=== PATIENT | female | born 1985 | race Two or more races ===

== ENCOUNTER 2024-11-25 08:10 | Outpatient (REF) | payer OTHER, SELFPAY | END 2024-11-25 08:11 | disposition home or self-care (01) | LOC: HO.LAB 08:10 | PROVIDERS: Visit Provider Nurse Practitioner Family | DX: R31.29 Other microscopic hematuria (principal); N39.46 Mixed incontinence; Z13.9 Encounter for screening, unspecified | CPT/HCPCS: 51798; 81003; 88112 ==

== ENCOUNTER 2024-11-25 08:10 | Outpatient (AMB) | payer OTHER, SELFPAY ==
--- NOTE | 2024-11-25 08:11 | A.OFFVIS_ITS ---
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 Cruz. She presents to the office today as a new patient for mixed urinary incontinence. She reports symptoms have been present for many years however feels they are worsening. She reports having previously followed up with a urologist in the past at which time recommendations were made for potential surgical procedure however she did not feel her symptoms were bothersome enough to have a surgical procedure. She reports most recently she has been experiencing significant episodes of stress incontinence and finds this extremely bothersome. She discusses having followed up with her PCP in discussing this issue at which time she was started on 25 mg of Myrbetriq. She reports and follow-up she noted no improvement at which time her PCP increased her Myrbetriq to 50 mg daily. She reports noting no improvement with increase in her Myrbetriq. She reports utilizing 3-4 Caroline pads per day along with adult d iapers. She does have a previous history of 2 vaginal deliveries of larger size babies. She reports after her 2nd child is when she felt symptoms began. She currently denies any UTI like symptoms. She denies hematuria, dysuria, foul smelling urine, changes to urinary stream, flank pain, fever, and or chills. We did discussed at length potential causes of mixed urinary incontinence as well as further treatment options and risks and benefits of these treatment options. In office urinalysis results reviewed with the patient today. Microscopic hematuria noted. She denies any previous history of workplace chemical exposure and or smoking history. PVR 87 mL. Discussed obtaining retroperitoneal ultrasound for further assessment evaluation. All questions were answered. She otherwise offers no other issues or concerns at this time. Discussion Notes I discussed with the patient that her symptoms are consistent with urge incontinence, which involves a sudden urge to urinate followed by involuntary leakage. We reviewed the treatment options, including physical therapy, alternative medications, and or urodynamics for further assessment and evaluation. We also discussed the potential risks of the urodynamic study and the need to stop Myrbetriq prior to the test. Plan The patient will undergo a urodynamic study to assess her urinary incontinence. Following the study, we will review the results to determine possible further interventions. Alternative medications may be explored if the current treatment remains ineffective. Imaging studies of the kidneys and bladder have been ordered to exclude other potential causes of her symptoms. FORMERLY [facility], [facility] Medical History Urge incontinence Review of Systems Const All systems reviewed & are unremarkable except as noted in HPI and below Physical Exam Const General: cooperative, healthy appearing, comfortable, no acute distress, well developed, alert and awake Orientation/consciousness: patient oriented x3 Limitations: no limitations HEENT Head: Yes normal to inspection, Yes normocephalic and Yes atraumatic Ears: hearing grossly normal bilaterally Eyes General: appearance normal, both eyes and all related structures Neck Neck: Yes normal visual inspection and Yes trachea midline Chest Chest palpation & inspection: normal inspection of the chest Resp Effort & Inspection: normal respiratory effort and able to speak in complete sentences Cardio Rate: regular rate GI Inspection: Yes normal to inspection General: Yes no CVA tenderness Back/Spine/Pelvis Back: no CVA tenderness Skin General skin exam: no rashes or lesions noted Neuro General: patient oriented x3 Extrem General: Yes normal to inspection Psych Appearance: grossly normal and well kempt Mental Status: mental status grossly normal Speech and movement: Normal speech and movement present and Clear speech present Affect: normal affect Attitude: cooperative Thought process: Normal thought process present Thought content: Normal thought content present Insight: Fair insight present (Psych) Judgement: Fair judgement present (Psych) Office Procedures Post Void Residual Post Residual Void Post Void Residual (PVR): 87 [id number] Void Residual by ultrasound Results AMB Urinalysis, Automated UA Leukoctes 0 Randy/uL Last Edit by Alexander Sudhasally, [facility] on 11/25/24 08:28 UA Nitrite Last Edit by Alexander Haley, [facility] on 11/25/24 08:28 UA Urobilinogen 0.2 mg/dL Last Edit by Alexander Haley, [facility] on 11/25/24 08:2 8 UA Protein 0 mg/dL Last Edit by Alexander Haley, [facility] on 11/25/24 08:28 UA pH 7.0 Last Edit by Alexander Haley, [facility] on 11/25/24 08:28 UA Blood 25 Calvin/uL [facility] on 11/25/24 08:28 UA Specific [place] 1.015 Last Edit by Alexander Haley, [facility] on 11/25/24 08: 28 UA Ketone Last Edit by Alexander Haley, [facility] on 11/25/24 08:28 UA Bilirubin 0 mg/dL Last Edit by Alexander Haley, [facility] on 11/25/24 08:28 UA Glucose 0 mg/dL Last Edit by Alexander Haley, [facility] on 11/25/24 08:28 Results Reviewed Results Reviewed: Laboratory Last Values Urine pH (Auto) 7.0 11/25/24 08:16 Specific [place] (Auto) 1.015 11/25/24 08:16 Urine Protein (Auto) 0 mg/dL 11/25/24 08:16 Glucose (UA)(Auto) 0 mg/dL 11/25/24 08:16 Urine Blood (Auto) 25 Calvin/uL 11/25/24 08:16 Urine Bilirubin (Auto) 0 mg/dL 11/25/24 08:16 Urine Urobilinogen (Auto) 0.2 mg/dL 11/25/24 08:16 Leukocyte Esterase (Auto) 0 Randy/uL 11/25/24 08:16 Assessment & Plan Assessment & Plan (1) Mixed stress and urge urinary incontinence: Code(s): N39.46 - Mixed incontinence Category: Medical (2) Microscopic hematuria: Code(s): R31.29 - Other microscopic hematuria Category: Medical Plan In office urinalysis results with the patient today; as noted above; will send for urine cytology PVR 87mL. Will obtain retroperitoneal ultrasound for further assessment evaluation. We did discussed at length potential causes and treatment options of mixed urinary incontinence; risks and benefits were discussed. All questions were answered. Stop Myrbetriq. Follow-up next available in office urodynamics. Follow-up per doctor's orders; or sooner with any issues, concerns, and or questions. Orders: Orders AMB Urinalysis Automated Today Z13.9 - Encounter for screening, unspecified AMB Post Void Residual by ultrasound Today Z13.9 - Encounter for screening, unspecified US retroperitoneal comp Today N39.46 - Mixed incontinence Urine Cytology Today R31.29 - Other microscopic hematuria Patient Instructions: The patient had an opportunity to ask questions regarding the treatment plan. All questions were answered. Physical exam, labs, and imaging were discussed and reviewed in detail. As well as risks, benefits, and discussion of treatment choices. No major barriers to understanding were identified. The patient expressed understanding and agreement with the above treatment plan. The patient was made aware they should contact our office by phone for worsening of their current condition, the appearance of new symptoms, or with any questions or concerns. Compliance is encouraged with any medications and follow up testing that is ordered. It is a privilege to be allowed the opportunity to participate in? your urological care.? Again, if you have any questions or concerns If you have any questions or concerns please do not hesitate to contact me. The office is [phone]. This note is constructed using voice recognition software. While every effort has been made to ensure accuracy topline beading machine tender errors may have been included. Yours sincerely, ALAN Landis Coding Level of Care Code New Pt Level 3 (16698) Diagnoses Mixed stress and urge urinary incontinence N39.46 Microscopic hematuria R31.29 CPT Codes Post Residual Void - PVR CPT Code: 82787-[id number] Void Residual by ultrasound ([id number])
--- OUTSIDE RECORDS SUMMARY | 2024-11-25 08:16 | XMS_ITS | Clinical Summary ---
Author Organization [facility] ity Address [address] [place] [address] Care Team Providers Care Automatic Thread Winder Name Role Phone Unavailable Primary Care Provider Unavailabl e Social History Tobacco Use Types Packs/Day Years Used Date Smoking Tobacco: Never Assessed Sex and Gender Information Value Date Recorded Sex Assigned at Not on file Legal Sex Male 10:42 PM EST Gender Identity Not on file Sexual Orientation Not on file Plan of Treatment Health Maintenance Due Date Last Done Comments DTaP,Tdap,and Td Vaccines (1 - Tdap) 2004 Hepatitis B Vaccines (1 of 3 - 19+ 3-dose series) 2004 COVID-19 Vaccine ( - 2023-2 5 season) 2024 Influenza Vaccine (#1) 2025 HIB Vaccines Aged Out No longer eligi ble based on patient's age to complete this topic HPV Vaccines Aged Out No longer eligi ble based on patient's age to complete this topic Hepatitis A Vaccines Aged Out No long er eligible based on patient's age to complete this topic IPV Vaccines Aged Out No longer eligi ble based on patient's age to complete this topic MMR Vaccines Aged Out No longer eligi ble based on patient's age to complete this topic Meningococcal ACWY Vaccine Aged Out N o longer eligible based on patient's age to complete this topic Meningococcal B Vaccine Aged Out No l onger eligible based on patient's age to complete this topic Pneumococcal Vaccine: Pediat rics (0 to 5 Years) and At-Risk Patients (6 to 64 Years) Aged Out No longer eligible b ased on patient's age to complete this topic RSV Immunization Patients Un xavier 20 months Aged Out No longer eligible b ased on patient's age to complete this topic Varicella Vaccines Aged Out No longer eligible based on patient's age to complete this topic
--- OUTSIDE RECORDS SUMMARY | 2024-11-25 08:16 | XMS_ITS | Clinical Summary ---
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 20 mmHG. Dx: M79.89 3 Each 08/15/19 19 Active mirabegron 50 mg [id number]: Mixed stress and urge urinary incontinence Take 1 Tablet by mouth nightly at bedtime. 90 Tablet 11/05/19 25 Active escitalopram (LEXAPRO) 10 mg tabletIndication s:Adjustment disorder with depressed mood Take 1 Tablet by mouth once daily. 90 Tablet 1 11/05/19 25 Active mirabegron ER (MYRBETRIQ) 25 mg [id number]: Urge incontinence of urine Take 1 Tablet by mouth nightly at bedtime 90 Tablet 1 09/07/19 25 025 Discontin ued(Ineff ective therapy) Active Problems Problem Noted Date Diagnosed Date Vitamin D deficiency 06/19/2018 Constipation 06/19/2018 Encounters Date Type Department Care Team Description 11/04/2024 3:00 PM EDT Office Visit [address] [phone] Sara Cortez MD 10/31/2024 10:00 AM EDT Office Visit [id number] [place] [phone] Diego Pinedo DMD 09/09/2024 Results Follow-Up [address] [phone] Rodrigo Cruz NP 09/06/2024 1:40 PM EDT Office Visit [address] [phone] Rodrigo Cruz NP from Last 3 Months Immunizations Immunization Administration Dates Next Due INFLUENZA, SEASONAL, INJECTABLE 02/28/2018 Family History Medical History Relation Name Comments Hypertension Mother Relation Name Status Comments Mother Alive Social History Tobacco Use Types Packs/Day Years Used Date Smoking Tobacco: Never Smokeless Tobacco: Never Tobacco Cessation:Counseling Given: Not Answered Alcohol Use Standard Drinks/Week Comments No 0 (1 standard drink = 0.6 oz pur e alcohol) Social Connections Answer Date Recorded Connectedness 0 02/02/2024 Financial Resource Strain Answer Date R ecorded Financial Resource Strain 0 2018 Stress Answer Date Recorded Stress 0 01/14/2019 Physical Activity Answer Date Recorded Physical Activity 0 01/14/2019 Food Insecurity Answer Date Recorded Food 0 02/15/2024 Transportation Needs Answer Date Record ed Transportation 0 01/14/2019 Housing Stability Answer Date Recorded Housing 0 01/14/2019 Safety and Environment Answer Date Eber rded Safety 0 01/14/2019 Utilities Answer Date Recorded Utilities 0 01/14/2019 Employment Answer Date Recorded Stress 0 02/02/2024 Comments No Sex and Gender Information Value Date Recorded Sex Assigned at Female 06/19/2018 8:11 AM PST Legal Sex Female 6:19 AM PST Gender Identity Female 06/19/2018 8:11 AM PST Sexual Orientation Straight 06/19/2018 8: 11 AM PST 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 Not on file Not on file Last Filed Vital Signs Vital Sign Reading Time Taken Comments Blood Pressure 126/68 11/04/2024 2:37 PM EDT Pulse 71 10/31/2024 1:13 PM EDT Temperature 36 C (96.8 F) 11/04/2024 2:37 PM EDT Respiratory Rate 18 11/04/2024 2:37 PM EDT Oxygen Saturation 97% 09/06/2024 1:55 PM EDT Inhaled Oxygen Concentration - - Weight 105.3 kg (232 lb 3.2 oz) 11/04/2024 2:37 PM EDT Height 170.2 cm (5' 7 ) 09/06/2024 1:55 PM EDT Body Mass Index 36.37 09/06/2024 1:55 PM EDT Plan of Treatment Upcoming Encounters Date Type Department Care Team (Late st Contact Info) Description 01/02/2025 9:40 AM EDT Office Visit [facility] [address] [place] [phone] Diego Crandall DDS [address] [place] [address] 02/03/2025 9:00 AM EDT Office Visit [facility] [address] [place] [phone] Lani Irby [address] [place] [address] Health Maintenance Due Date Last Done Comments Anxiety Screening 1985 Dental FMX/Pano 1985 HPV Screening 1985 Pap + HPV 1985 Relationship Safety Screening/Counseling 2000 Imm-Hepatitis B (1 of 3 - 19 + 3-dose series) 2004 Annual Wellness (Adult): Indicated (All Coverage) 06/19/2019 06/19/2018 Cervical Cancer Screening 03/02/2021 Pap Smear 03/02/2021 03/02/2018 [id number]-10 ( season) 2024 Dental BW 12/19/2024 12/18/2023, 0 01/2024, 11/29/2022, Additional history exists Dental Examination 12/19/2024 12/18/2023, 0 05/30/2023, 11/29/2022, Additional history exists Dental Perio Charting 12/19/2024 12/18/2023, 023 Dental Prophy 12/19/2024 12/18/2023, 01/2024, 11/29/2022, Additional history exists Imm-Influenza (#1) 2025 02/28/2018 Diabetes Screening 09/06/2025 09/06/2024, 0 09/06/2024, 11/27/2019, Additional history exists Hypertension Screening (#1) 11/04/2025 Tobacco Screening 11/04/2025 11/04/2024 Lipid Screening 09/07/2027 09/06/2024, 06/28/2018 Imm-DTaP/Tdap/Td (2 - Td or Tdap) 09/08/2031 022 HIV Screening Completed 03/08/2021, 01/16/2019 Hepatitis C Screening Completed 09/06/2024 Alcohol and Drug Screen Completed 11/04/2024, 06/19 Depression Annual Screen Completed 11/04/2024, 05/23 Cervical Ablation/Cold-Knife Conization Discontinued Cervical Cryotherapy Discontinued Colposcopy Discontinued Endometrial Biopsy Discontinued Excision/Leep Discontinued HPV Genotyping Discontinued Vaginal Pap Discontinued Vulvoscopy Discontinued Procedures Procedure Name Priority Date/Time Associated Diagnosis Comments 32 INTRAORAL - PERIAPICAL FIRST RADIOGRAPHIC IMAGE TOOTH REQUIRED Routine 10/31/2024 10:00 AM EDT Defective dental shinto 32 LIMITED ORAL EVALUATION - PROBLEM FOCUSED Routine 10/31/2024 10:00 AM EDT Defective dental shinto Dental caries on smooth surface penetrating into pulp HEPATITIS C AB W/RFLX HCV RNA, QT, RT PCR Routine 09/06/2024 2:21 PM EDT Need for hepatitis C screening test TSH W/RFLX FREE T4 Routine 09/06/2024 2: 21 PM EDT Obesity (BMI 30-39.9) COMPREHENSIVE METABOLIC PANEL Routine 09/06/2024 2:21 PM EDT Screening for heart disease BLOOD COUNT COMPLETE AUTO&AUTO DIFRNTL WBC Routine 09/06/2024 2:21 PM EDT Screening for heart disease LIPID PANEL Routine 09/06/2024 2:21 PM EDT Obesity (BMI 30-39.9) HEMOGLOBIN GLYCOSYLATED A1C Routine 09/06/2024 2:21 PM EDT Obesity (BMI 30-39.9) COMP PERIODONTAL EVALUATION - NEW/EST PATIENT Routine 12/18/2023 9:00 AM EDT Caries BITEWINGS - FOUR RADIOGRAPHIC IMAGES Routine 12/18/2023 9:00 AM EDT Caries PROPHYLAXIS - ADULT Routine 12/18/2023 9 :00 AM EDT [facility] PERIODIC ORAL EVALUATION ESTABLISHED PATIENT Routine 12/18/2023 9:00 AM EDT [facility] HIV 1/2 AG & AB W/RFLX (4TH GEN) Routine 03/08/2021 12:50 PM EDT Routine screening for STI (sexually transmitted infection) PAP SMEAR Routine 03/02/2018 8:44 AM EDT from Last 3 Months or Most Recently Relevant to Health Maintenance Results * HEPATITIS C AB W/RFLX HCV RNA, QT, RT PCR (09/06/2024 2:21 PM EDT) HEPATITIS C ANTIBODY NON-REACT MYRIAM NON-REACT MYRIAM [facility] Comment: HCV antibody was non-reactive. There is no laboratory evidence of HCV infection. In most cases, no further action is required. However, if recent HCV exposure is suspected, a test for HCV RNA (test code 15980) is suggested. For additional information please refer to http://education.LiveData/faq/GPC97z4 (This link is being provided for informational/ educational purposes only.) Blood Blood / Unknown 09/06/2024 2 :21 PM EDT 09/06/2024 2:22 PM EDT Narrative [facility] - 09/07/2024 2:07 PM EDT FASTING:NO Rodrigo Cruz NP LAB - BLOOD DRAW Edited Result - Final [facility] [address] [place] [address], [facility] [address] [address] * TSH W/RFLX FREE T4 (09/06/2024 2:21 PM EDT) TSH W/REFLEX TO FT4 2.16 0.40 - 4.50 mIU/L [facility] Comment: Reference Range > or = 20 Years 0.40-4.50 Ranges First trimester 0.26-2.66 Second trimester 0.55-2.73 Third trimester 0.43-2.91 Blood Blood / Unknown 09/06/2024 2 :21 PM EDT 09/06/2024 2:22 PM EDT Narrative [facility] - 09/07/2024 2:07 PM EDT FASTING:NO Rodrigo Cruz NP LAB - BLOOD DRAW Edited Result - Final [facility] [address] [place] [address], [facility] [address] [address] * BLOOD COUNT COMPLETE AUTO&AUTO DIFRNTL WBC (09/06/2024 2:21 PM EDT) Pathologist [facility] WHITE BLOOD CELL COUNT 6.0 3.8 - 10.8 Thousand/ uL [facility] RED BLOOD CELL COUNT 4.79 3.80 - 5.10 Million/u L [facility] HEMOGLOBIN 14.5 11.7 - 15.5 g/dL [facility] HEMATOCRIT 44.0 35.0 - 45.0 % [facility] MCV 91.9 80.0 - 100.0 fL [facility] MCH 30.3 27.0 - 33.0 pg [facility] MCHC 33.0 32.0 - 36.0 g/dL [facility] Comment: For adults, a slight decrease in the calculated MCHC value (in the range of 30 to 32 g/dL) is most likely not clinically significant; however, it should be interpreted with caution in correlation with other red cell parameters and the patient's clinical condition. RDW 12.3 11.0 - 15.0 % [facility] PLATELET COUNT 291 140 - 400 Thousand/ uL [employer] MPV 11.8 7.5 - 12.5 fL [facility] ABSOLUTE NEUTROPHILS 3,912 1,500 - 7,800 cells/uL [facility] ABSOLUTE LYMPHOCYTES 1,614 850 - 3,900 cells/uL [facility] ABSOLUTE MONOCYTES 414 200 - 950 cells/uL [facility] ABSOLUTE EOSINOPHILS 48 15 - 500 cells/uL [facility] ABSOLUTE BASOPHILS 12 0 - 200 cells/uL [facility] NEUTROPHILS PCT 65.2 % [facility] LYMPHOCYTES 26.9 % [facility] MONOCYTES 6.9 % [facility] [email or web address] [facility] EOSINOPHILS 0.8 % [facility] BASOPHILS 0.2 % [facility] Blood Blood / Unknown 09/06/2024 2 :21 PM EDT 09/06/2024 2:22 PM EDT Narrative [facility] - 09/07/2024 2:07 PM EDT FASTING:NO us Rodrigo Cruz NP LAB - BLOOD DRAW Edited Result - Final [facility] [address] [address], [facility] [address] [address] * (ABNORMAL) HEMOGLOBIN GLYCOSYLATED A1C (09/06/2024 2:21 PM EDT) HEMOGLOBIN A1C 5.7(H) <5.7 % [facility] Comment: For someone without known diabetes, a hemoglobin A1c value between 5.7% and 6.4% is consistent with prediabetes and should be confirmed with a follow-up test. For someone with known diabetes, a value <7% indicates that their diabetes is well controlled. A1c targets should be individualized based on duration of diabetes, age, comorbid conditions, and other considerations. This assay result is consistent with an increased risk of diabetes. Currently, no consensus exists regarding use of hemoglobin A1c for diagnosis of diabetes for children. Blood Blood / Unknown 09/06/2024 2 :21 PM EDT 09/06/2024 2:22 PM EDT [facility] - 09/07/2024 2:07 PM EDT FASTING:NO us Rodrigo Cruz APARTMENT LEASING SPECIALIST LAB - BLOOD DRAW Edited Result - Final Performing Organization Address [facility]/ZIP Co de Phone Number [facility] [address] [address], [facility] [address] [place] [address] * (ABNORMAL) LIPID PANEL (09/06/2024 2:21 PM EDT) [facility] Signature CHOLESTEROL, TOTAL 176 <200 mg/dL [facility] HDL CHOLESTEROL 44(L) > OR = 50 mg/dL [facility] TRIGLYCERIDES 179(H) <150 mg/dL [facility] LDL-CHOLESTEROL 102(H) 99 mg/dL (calc) [facility] Comment: Reference range: <100 Desirable range <100 mg/dL for primary prevention; <70 mg/dL for patients with CHD or diabetic patients with > or = 2 CHD risk factors. LDL-C is now calculated using the Jakob calculation, which is a validated novel method providing better accuracy than the Friedewald equation in the estimation of LDL-C. Todd ARMSTRONG et al. CORRIE. 2013;310(19): 3883-8205 (http://education.FitBark/faq/PFC893) CHOL/HDLC RATIO 4.0 <5.0 (calc) [facility] NON-HDL CHOLESTEROL 132(H) <130 mg/dL (calc) [facility] Comment: For patients with diabetes plus 1 major ASCVD risk factor, treating to a non-HDL-C goal of <100 mg/dL (LDL-C of <70 mg/dL) is considered a therapeutic option. Blood Blood / Unknown 09/06/2024 2 :21 PM EDT 09/06/2024 2:22 PM EDT Narrative [facility] - 09/07/2024 2:07 PM EDT FASTING:NO Rodrigo Cruz APARTMENT LEASING SPECIALIST LAB - BLOOD DRAW Final Result Performing Organization Address City/[facility] Hospital/ZIP Co de Phone Number [facility] [address] [address], [facility] [address] [place] [address] * (ABNORMAL) COMPREHENSIVE METABOLIC PANEL (09/06/2024 2:21 PM EDT) Pathologist [facility] GLUCOSE 90 65 - 139 mg/dL [facility] Comment: Non-fasting reference interval UREA NITROGEN (BUN) 12 7 - 25 mg/dL [facility] CREATININE (blood) 1.10(H) 0.50 - 0.97 mg/dL [facility] EGFR 66 > OR = 60 mL/min/1. 73m2 [facility] BUN/CREATININE RATIO 11 6 - 22 (calc) [facility] SODIUM 138 135 - 146 mmol/L [facility] POTASSIUM 4.6 3.5 - 5.3 mmol/L [facility] CHLORIDE 106 98 - 110 mmol/L [facility] CARBON DIOXIDE 26 20 - 32 mmol/L [facility] CALCIUM 9.7 8.6 - 10.2 mg/dL [facility] PROTEIN, TOTAL 7.7 6.1 - 8.1 g/dL [facility] ALBUMIN 4.4 3.6 - 5.1 g/dL [facility] GLOBULIN 3.3 1.9 - 3.7 g/dL (calc) [facility] ALBUMIN/GLOBULI N RATIO 1.3 1.0 - 2.5 (calc) [facility] BILIRUBIN, TOTAL 0.4 0.2 - 1.2 mg/dL [facility] ALKALINE PHOSPHATASE 61 31 - 125 U/L [facility] AST 14 10 - 30 U/L [facility] ALT 17 6 - 29 U/L [facility] Blood Blood / Unknown 09/06/2024 2 :21 PM EDT 09/06/2024 2:22 PM EDT Narrative [facility] - 09/07/2024 2:07 PM EDT FASTING:NO Rodrigo Cruz APARTMENT LEASING SPECIALIST LAB - BLOOD DRAW Final Result [facility] [address] [address], [facility] [address] [address] * HIV 1/2 AG & AB W/RFLX (4TH GEN) (03/08/2021 12:50 PM EDT) Pathologist [facility] HIV AG/AB, 4TH GEN NON-REAC TIVE NON-REAC TIVE [facility] Comment: HIV-1 antigen and HIV-1/HIV-2 antibodies were not detected. There is no laboratory evidence of HIV infection. PLEASE NOTE: This information has been disclosed to you from records whose confidentiality may be protected by state law. If your state requires such protection, then the state law prohibits you from making any further disclosure of the information without the specific written consent of the person to whom it pertains, or as otherwise permitted by law. A general authorization for the release of medical or other information is NOT sufficient for this purpose. For additional information please refer to http://education.LiveData/faq/UAR141 (This link is being provided for informational/ educational purposes only.) The performance of this assay has not been clinically validated in patients less than 2 years old. Blood Blood / Unknown 03/08/2021 1 2:50 PM EDT 03/08/2021 12:50 PM EDT Megha Herron ALL PURPOSE CLERK LAB - BLOOD DRAW Final Result [facility] [address] [address], [facility] [address] [address] * PAP SMEAR, ABSTRACTED (03/02/2018 8:44 AM EDT) PAP SMEAR INTERPRETATION NORMAL NORMAL [facility] Specimen from uterine cervix (specimen) Impressions [facility] - 03/02/2018 8:44 AM EDT ThinPrep Pap Negative for squamous intraepithelial lesion and malignancy Provider [facility] - PATHOLOGY AND CYTOLOGY AMB ULATORY Final Result [facility] [address] [id number], from Last 3 Months or Most Recently Relevant to Health Maintenance Insurance [place] Subtext [facility]
== END 2024-11-25 09:03 | disposition home or self-care (01) ==
LOC: HO.HUSH 08:11
PROVIDERS: Visit Provider Nurse Practitioner Family
DX: N39.46 Mixed incontinence (principal); R31.29 Other microscopic hematuria; Z13.9 Encounter for screening, unspecified
CPT/HCPCS: 99203

== ENCOUNTER 2024-12-11 09:56 | Outpatient (REF) | payer OTHER, SELFPAY ==
--- NOTE | ~2024-12-11 | US_ITS ---
EXAMINATION: US RETROPERITONEAL COMPLETE (RENAL) CLINICAL INFORMATION: Mixed incontinence.. COMPARISON: None available. TECHNIQUE: Real-time imaging of the kidneys and bladder. FINDINGS: RIGHT KIDNEY: 11 x 5 x 6 cm (SAG x AP x TRV). Volume: 181 cc. Normal echotexture. Normal renal cortical thickness. No hydronephrosis. No gross solid or cystic lesion. LEFT KIDNEY: 12 x 5 x 6 cm (SAG x AP x TRV). Volume: 195 cc. Normal echotexture. Normal renal cortical thickness. No hydronephrosis. No gross solid or cystic lesion detected. BLADDER: Fluid-filled Bilateral ureteral jets are demonstrated. Prevoid bladder volume is 123 mL. Postvoid bladder volume is 20 mL. US/US retroperitoneal comp IMPRESSION: No hydronephrosis. 20 cc retained urine in a post void image.. Electronically signed by: Jonathan Lovell MD 12/11/2024 10:40 AM EDT
--- OUTSIDE RECORDS SUMMARY | 2024-12-11 10:42 | XMS_ITS | Clinical Summary ---
Author Organization [facility] ity Address [address] [place] [address] Care Team Providers Care Dbas Name Role Phone Unavailable Primary Care Provider [...] Vaccine ( - 2023-2 5 season) 2024 Depression Screening 05/22/2024 Influenza Vaccine (#1) 2025 HIB Vaccines Aged [...] 5 Years) and At-Risk Patients (6 to 49 Years) Aged Out No longer eligible b ased on patient's age to complete this topic RSV Immunization Patients Un xavier 20 months Aged Out No longer eligible b ased on patient's age to complete this topic Varicella Vaccines Aged Out No longer eligible based on patient's age to complete this topic
== END 2024-12-11 09:57 | disposition home or self-care (01) ==
LOC: HO.US 09:56
PROVIDERS: Visit Provider Nurse Practitioner Family
DX: N39.46 Mixed incontinence (principal)
CPT/HCPCS: 76770

== ENCOUNTER → 2024-12-11 09:57 | Outpatient (BNV) | payer OTHER, SELFPAY | PROVIDERS: Visit Provider Radiology Diagnostic Radiology | DX: N39.46 Mixed incontinence (principal) | CPT/HCPCS: 76770 ==

== ENCOUNTER 2024-12-20 13:09 | Outpatient (AMB) | payer OTHER, SELFPAY ==
--- OUTSIDE RECORDS SUMMARY | 2024-12-20 13:11 | XMS_ITS | Clinical Summary ---
Author Organization [facility] Address [address] [place] [address] Care Team Providers Care Marine Mechanic Name Role Phone Unavailable Primary Care Provider [...] STOCKINGS. 20 mmHG. Dx: M79.89 3 Each 9 Active mirabegron 50 mg [id number]: Mixed stress and urge urinary incontinence Take 1 Tablet by mouth nightly at bedtime. 90 Tablet 5 Active escitalopram (LEXAPRO) 10 mg tabletIndication s:Adjustment disorder with depressed mood Take 1 Tablet by mouth once daily. 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 Not on file Not [...] Description 01/02/2025 9:40 AM EDT Office Visit [facility] [address] [place] [address] Marian Crandallis, DDS [address] [place] [address] 02/03/2025 9:00 AM EDT Office Visit [facility] [address] [place] [phone] Lani Irby [address] [place] [address] Health Maintenance Due Date Last Done Comments Anxiety Screening 1985 Dental FMX/Pano 1985 HPV Screening 1985 Pap + HPV 1985 Relationship Safety Screening/Counseling 2000 Imm-Hepatitis B (1 of 3 - 19 + 3-dose series) 2004 Annual Wellness (Adult): Indicated (All Coverage) 06/19/2019 06/19/2018 Cervical Cancer Screening 03/02/2021 Pap Smear 03/02/2021 03/02/2018 [id number] ( season) 2024 Dental BW 12/19/2024 12/18/2023, 01/0 01/2024, 11/29/2022, Additional history exists Dental Examination 12/19/2024 12/18/2023, 0 05/30/2023, 11/29/2022, Additional history exists Dental Perio Charting 12/19/2024 12/18/2023, 023 Dental Prophy 12/19/2024 12/18/2023, 01/0 01/2024, 11/29/2022, Additional history exists Imm-Influenza (#1) [...] Routine 10/31/2024 10:00 AM EDT Defective dental congregational 32 LIMITED ORAL EVALUATION - PROBLEM FOCUSED Routine 10/31/2024 10:00 AM EDT Defective dental congregational Dental caries on smooth surface penetrating into pulp HEPATITIS C AB W/RFLX HCV RNA, QT, RT PCR Routine 09/06/2024 2:21 PM EDT Need for hepatitis C screening test HEMOGLOBIN GLYCOSYLATED A1C Routine 09/06/2024 2:21 PM EDT Obesity (BMI 30-39.9) LIPID PANEL Routine 09/06/2024 2:21 PM EDT [...] HEPATITIS C ANTIBODY NON-REACT MYRIAM NON-REACT MYRIAM [facility] Comment: HCV antibody was non-reactive. There is no laboratory evidence of HCV infection. In most cases, no further action is required. However, if recent HCV exposure is suspected, a test for HCV RNA (test code 46580) is suggested. For additional information please refer to http://education.LeWa [employer]ek/faq/DRI35d8 (This link is being provided for informational/ educational purposes only.) Blood Blood / Unknown 09/06/2024 2 :21 PM EDT 09/06/2024 2:22 PM EDT Narrative [employer] [facility] - 09/07/2024 2:07 PM EDT FASTING:NO us Rodrigo Cruz NP LAB - BLOOD DRAW Edited Result - Final Performing Organization Address [facility] de Phone Number [employer] [address] [address], [facility] [address] [address] * (ABNORMAL) HEMOGLOBIN GLYCOSYLATED A1C (09/06/2024 2:21 PM EDT) HEMOGLOBIN A1C 5.7(H) <5.7 % [facility] Comment: For someone without known diabetes, a [...] PM EDT 09/06/2024 2:22 PM EDT Narrative [employer] [facility] - 09/07/2024 2:07 PM EDT FASTING:NO us Rodrigo Cruz DRUM DRIER OPERATOR LAB - BLOOD DRAW Edited Result - Final Performing Organization Address [facility] Co de Phone Number [facility] [address] [address], [facility] [address] [address] * (ABNORMAL) LIPID PANEL (09/06/2024 2:21 PM EDT) [facility] CHOLESTEROL, TOTAL 176 <200 mg/dL [facility] HDL CHOLESTEROL 44(L) > OR = 50 mg/dL [facility] TRIGLYCERIDES 179(H) <150 mg/dL [facility] LDL-CHOLESTEROL 102(H) 99 mg/dL (calc) [facility] Comment: Reference range: <100 Desirable range <100 mg/dL for primary prevention; <70 mg/dL for patients with CHD or diabetic patients with > or = 2 CHD risk factors. LDL-C is now calculated using the Jakob calculation, which is a validated novel method providing better accuracy than the Friedewald equation in the estimation of LDL-C. Todd ARMSTRONG et al. CORRIE. 2013;310(19): 7968-5454 (http://education.[employer]/faq/MQA415) CHOL/HDLC RATIO 4.0 <5.0 (calc) [facility] NON-HDL CHOLESTEROL 132(H) <130 mg/dL (calc) [facility] Comment: For patients with diabetes plus 1 major ASCVD risk factor, treating to a non-HDL-C goal of <100 mg/dL (LDL-C of <70 mg/dL) is considered a therapeutic option. Blood Blood / Unknown 09/06/2024 2 :21 PM EDT 09/06/2024 2:22 PM EDT Narrative [employer] [facility] - 09/07/2024 2:07 PM EDT FASTING:NO Rodrigo Cruz NP LAB - BLOOD DRAW Final Result [facility] [address] [address], [facility] [address] [address] * HIV 1/2 AG & AB W/RFLX (4TH GEN) (03/08/2021 12:50 PM EDT) [facility] HIV AG/AB, 4TH GEN NON-REAC TIVE NON-REAC TIVE [facility] Comment: HIV-1 antigen and HIV-1/HIV-2 antibodies [...] purpose. For additional information please refer to http://education.LeWa Tek/faq/KHZ948 (This link is being provided for informational/ educational purposes only.) The performance of this assay has not been clinically validated in patients less than 2 years old. Blood Blood / Unknown 03/08/2021 1 2:50 PM EDT 03/08/2021 12:50 PM EDT Megha Herron SR SOLUTIONS CONSULTANT LAB - BLOOD DRAW Final Result [facility] [address] [address], [facility] [address] [address] * PAP SMEAR, ABSTRACTED (03/02/2018 8:44 AM EDT) PAP SMEAR INTERPRETATION NORMAL NORMAL [facility] Specimen from uterine cervix (specimen) Impressions [facility] - 03/02/2018 8:44 AM EDT ThinPrep Pap Negative for squamous intraepithelial lesion and malignancy Provider [facility] - PATHOLOGY AND CYTOLOGY AMB ULATORY Final Result [facility] [address] [place] [address], from Last 3 Months or Most Recently Relevant to Health Maintenance Insurance [place] MEDICAID D[place] [employer] [facility]
--- OUTSIDE RECORDS SUMMARY | 2024-12-20 13:11 | XMS_ITS | Clinical Summary ---
Author Organization [facility] ity Address [address] [place] [address] Care Team Providers Care Electrotherapist Name Role Phone Unavailable Primary Care Provider [...]
--- NOTE | 2024-12-20 13:55 | A.OFFVIS_ITS ---
Intake Visit Reasons: UroD/US Allergies No Known Allergies Allergy (Verified 11/25/24 08:43) HPI Comments Details: 12/20/24--Mora is here for urodynamics. The patient has complaints of urinary incontinence, associated with urgency as well as leakage associated with coughing. Interpretation: During the filling phase there was sensory urgency and detrusor over activity. EMG- Appropriate changes in the waveforms were noted throughout study. Leakage [] was [] was not observed during cough or valsalva stress. Findings consistent with [] ISD [] less than average functional bladder capacity, [] detrusor overactivity. 11/25/24--Gemma is a very pleasant 39-year-old female patient of Dr. Cruz. She presents to the office today as a new patient for mixed urinary incontinence. She reports symptoms have been present for many years however feels they are worsening. She reports having previously followed up with a urologist in the past at which time recommendations were made for potential surgical procedure however she did not feel her symptoms were bothersome enough to have a surgical procedure. She reports most recently she has been experiencing significant episodes of stress incontinence and finds this extremely bothersome. She discusses having followed up with her PCP in discussing this issue at which time she was started on 25 mg of Myrbetriq. She reports and follow-up she noted no improvement at which time her PCP increased her Myrbetriq to 50 mg daily. She reports noting no improvement with increase in her Myrbetriq. She reports utilizing 3-4 Caroline pads per day along with adult diapers. She does have a previous history of 2 vaginal deliveries of larger size babies. She reports after her 2nd child is when she felt symptoms began. She currently denies any UTI like symptoms. She denies hematuria, dysuria, foul smelling urine, changes to urinary stream, flank pain, fever, and or chills. We did discussed at length potential causes of mixed urinary incontinence as well as further treatment options and risks and benefits of these treatment options. In office urinalysis results reviewed with the patient today. Microscopic hematuria noted. She denies any previous history of workplace chemical exposure and or smoking history. PVR 87 mL. Discussed obtaining retroperitoneal ultrasound for further assessment evaluation. All questions were answered. She otherwise offers no other issues or concerns at this time. [facility] Medical History (Reviewed 11/25/24 @ 08:44 by CAMDEN Land[facility]EN[facility] Urge incontinence Office Procedures Urodynamic Studies Consent Discussed risk and benefit or proposed procedure with the patient. Information consent for procedure given to the patient. Discussed technical aspects, risks, benefits and alternatives in full. Addressed all of the patient's questions and concerns regarding the procedure. The patient demonstrated knowledge and understanding. They wish to proceed with this procedure. Preparation The patient was prepped in the usual manner. A department head college or university was present and in the room. Genitalia was prepped with betadine solution in a sterile manner. Procedure Complex Uroflow Unable to perform, patient voided just prior to starting test and had no further urge. Cystometrogram ? Vaginal/rectal catheter type: Vaginal First sensation at (mL): 22mL First desire at (mL): 99 mL Strong desire to void occurred at (mL): 137 mL Strong desire detrusor pressure (cm H2O): 9.0 Maximum Capacity (mL): 160 mL Voiding Summary Voided with max detrusor pressure of (cm H2O): 44 Maximum flow rate (mL/second): 17 mL/s Voided volume (mL): 120ml (Moderate amount leaked onto ground and unable to measure full amount voided.) Calculated PVR: 0 Stress Testing Unable to perform due to severe DO. Urgency with no DO: 99ml DO Dry: 109ml, 137ml DO Wet:160ml Prep: The patient was prepped in the usual manner. A department head college or university was present and in the room. Genitalia was prepped with betadine solution in a sterile manner. 66302-Bquhwbsrvwqvxn w/ JOCKEY AGENT 88796-Vbweorh-Yuwuvaktdzlt 99939-Nndr/Urinary Muscle Study 59539-Rwsaz-Xhfljcaau Pressure Test Procedure code (CPT) selection complete Office Meds nitrofurantoin monohydrate/macrocrystals 100 mg capsule Performing Provider: Stefan Reed MD Per[facility] Administered by: Elicia Burger RN on 12/20/24 13:55 Dose Route Admin Location Dispensed Lot Number Expiration Date NDC Support Analyst 100 mg PO 1 cap Results AMB Urinalysis, Automated UA Leukoctes 15 Randy/uL Last Edit by Elicia Burger RN on 12/20/24 14:03 UA Nitrite Negative Last Edit by Elicia Burger RN on 12/20/24 14:03 UA Urobilinogen 0.2 mg/dL Last Edit by Elicia Burger RN on 12/20/24 14: 03 UA Protein 0 mg/dL Last Edit by Elicia Burger RN on 12/20/24 14:03 UA pH 6.0 Last Edit by Elicia Burger RN on 12/20/24 14:03 UA Blood 10 Calvin/uL Last Edit by Elicia Burger RN on 12/20/24 14:03 UA Specific [place] 1.0 Last Edit by Elicia Burger RN on 12/20/24 14:0 3 UA Ketone Negative Last Edit by Elicia Burger RN on 12/20/24 14:03 UA Bilirubin 0 mg/dL Last Edit by Elicia Burger RN on 12/20/24 14:03 UA Glucose 0 mg/dL Last Edit by Elicia Burger RN on 12/20/24 14:03 Assessment & Plan Assessment & Plan Plan Bulkamid. Orders: Orders AMB Urinalysis Automated Today Z13.9 - Encounter for screening, unspecified AMB Urodynamics Studies Today N39.46 - Mixed incontinence Patient Instructions: The patient had an opportunity to ask questions regarding treatment plan. The patient expressed understanding and agreement with the above treatment plan. The patient is aware they should contact our office by phone for worsening of their current condition or the appearance of new symptoms. Compliance is encouraged with any medications and followup testing that is ordered. It is a privilege to be allowed the opportunity to participate in the urologic care of your patient. If you have any questions or concerns regarding treatment for the above conditions please do not hesitate to contact me. The office telephone contact is [phone]. This note is constructed in part using voice recognition software. While every effort has been made to ensure accuracy test preparation tutor errors may have been included. Yours sincerely, Stefan Reed MD Scribe Plan - Not visible on output: Patient was informed and verbally consented to the use of an ambient scribe for clinic note documentation during this visit. Coding CPT Codes Urodynamic Studies - CPT: 99328-Unuhzomhlborwg w/ JOCKEY AGENT ([id number]) Urodynamic Studies - CPT: 50712-Gmoqglv-Jneykeydciav ([id number]) Urodynamic Studies - CPT: 06619-Kxjf/Urinary Muscle Study ([id number]) Urodynamic Studies - CPT: 54543-Ikfln-Zjzyudllx Pressure Test ([id number])
== END 2024-12-20 14:44 | disposition home or self-care (01) ==
PROVIDERS: Visit Provider Urology
DX: N39.46 Mixed incontinence (principal)
CPT/HCPCS: 51728; 51741; 51784; 51797

== ENCOUNTER → 2024-12-20 13:09 | Outpatient (BNVA) | payer OTHER, SELFPAY | PROVIDERS: Visit Provider Urology | DX: N39.3 Stress incontinence (female) (male) (principal) | CPT/HCPCS: 51728; 51741; 51784; 51797; 81003; 99212 ==

== ENCOUNTER 2025-02-11 06:56 | Day surgery (SDC) | payer OTHER, SELFPAY ==
--- OUTSIDE RECORDS SUMMARY | 2025-01-28 14:20 | XMS_ITS | Clinical Summary ---
Author Organization [facility] ity Address [address] [place] [address] Care Team Providers Care Automatic Silk Screen Printer Name Role Phone Unavailable Primary Care Provider [...] of 3 - 19+ 3-dose series) 2004 Depression Screening 05/22/2024 COVID-19 Vaccine (1 - 2023-2 5 season) 2025 Influenza Vaccine (#1) 2025 HIB Vaccines Aged [...]
--- OUTSIDE RECORDS SUMMARY | 2025-01-28 14:20 | XMS_ITS | Clinical Summary ---
Author Organization [facility] Address [address] [place] [address] Care Team Providers Care Adhesive Bandage Making Operator Name Role Phone Unavailable Primary Care Provider [...] 3 Each 9 Active mirabegron 50 mg [id number]: Mixed stress and urge urinary incontinence Take 1 Tablet by mouth nightly at bedtime. 90 Tablet 5 Active escitalopram (LEXAPRO) 10 mg tabletIndication s:Adjustment disorder with depressed mood Take 1 Tablet by mouth once daily. 90 Tablet 1 5 Active ibuprofen 600 mg tabletIndication s:Dental caries on smooth surface penetrating into pulp Take 1 Tablet by mouth 4 (four) times daily as needed for mild pain. 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 [address] [place] [phone] IrbyLani browning [address] [place] [address] Health Maintenance Due Date Last Done Comments Anxiety Screening 1985 Dental FMX/Pano 1985 HPV Screening 1985 Pap + HPV 1985 Relationship Safety Screening/Counseling 2000 Imm-Hepatitis B (1 of 3 - 19 + 3-dose series) 2004 Annual Wellness (Adult): Indicated (All Coverage) 06/19/2019 06/19/2018 Cervical Cancer Screening 03/02/2021 Pap Smear 03/02/2021 03/02/2018 Dental BW 12/19/2024 12/18/2023, 01/0 01/2024, 11/29/2022, Additional history exists Dental Examination 12/19/2024 12/18/2023, 0 05/30/2023, 11/29/2022, Additional history exists Dental Perio Charting 12/19/2024 12/18/2023, 023 Dental Prophy 12/19/2024 12/18/2023, 01/0 01/2024, 11/29/2022, Additional history exists [id number]-52 ( season) 2025 Imm-Influenza (#1) 2025 02/28/2018 Diabetes Screening 09/06/2025 [...] Procedure Name Priority Date/Time Associated Diagnosis Comments CASE PRESENTATION SUBS DTL & EXTENSIVE TX PLN Routine 01/02/2025 9:40 AM EDT Defective dental cheondoism 32 EXTRACTION ERU TOOTH RQR REMV BONE &/SECTN TOOTH Routine 01/02/2025 9:40 AM EDT Defective dental cheondoism Dental caries on smooth surface penetrating into pulp 32 INTRAORAL - PERIAPICAL FIRST RADIOGRAPHIC IMAGE TOOTH REQUIRED Routine 10/31/2024 10:00 AM EDT Defective dental cheondoism 32 LIMITED ORAL EVALUATION - PROBLEM FOCUSED Routine 10/31/2024 10:00 AM EDT Defective dental cheondoism Dental caries on smooth surface penetrating into [...] HEPATITIS C ANTIBODY NON-REACT MYRIAM NON-REACT MYRIAM [facility] Comment: HCV antibody was non-reactive. There is no laboratory evidence of HCV infection. In most cases, no further action is required. However, if recent HCV exposure is suspected, a test for HCV RNA (test code 54972) is suggested. For additional information please refer to http://education.[employer]/faq/WTM11i2 (This link is being provided for informational/ educational purposes only.) Blood Blood / Unknown 09/06/2024 2 :21 PM EDT 09/06/2024 2:22 PM EDT Narrative [facility] - 09/07/2024 2:07 PM EDT FASTING:NO Rodrigo Cruz NP LAB - BLOOD DRAW Edited Result - Final [facility] [address] [place] [address], [facility] [address] [place] [phone] * (ABNORMAL) HEMOGLOBIN GLYCOSYLATED A1C (09/06/2024 2:21 PM EDT) HEMOGLOBIN A1C 5.7(H) <5.7 % [facility] Comment: For someone without known diabetes, a [...] PM EDT 09/06/2024 2:22 PM EDT Narrative [facility] - 09/07/2024 2:07 PM EDT FASTING:NO Rodrigo Cruz UI PROGRAMMER LAB - BLOOD DRAW Edited Result - Final Performing Organization Address [facility]/ZIP Co de Phone Number [employer] [address] [address], [employer] [address] [address] * (ABNORMAL) LIPID PANEL (09/06/2024 2:21 PM EDT) [facility] CHOLESTEROL, TOTAL 176 <200 mg/dL [employer] [facility] [employer] [facility] HDL CHOLESTEROL 44(L) > OR = 50 mg/dL [employer] [facility] [employer] [facility] TRIGLYCERIDES 179(H) <150 mg/dL [employer] [facility] LDL-CHOLESTEROL 102(H) 99 mg/dL (calc) [facility] Comment: Reference range: <100 Desirable range <100 mg/dL for primary prevention; <70 mg/dL for patients with CHD or diabetic patients with > or = 2 CHD risk factors. LDL-C is now calculated using the Todd-Shin calculation, which is a validated novel method providing better accuracy than the Friedewald equation in the estimation of LDL-C. Todd SS et al. CORRIE. 2013;310(19): 9240-2358 (http://education.[employer]/faq/YZA933) CHOL/HDLC RATIO 4.0 <5.0 (calc) [employer] NON-HDL CHOLESTEROL 132(H) <130 mg/dL (calc) [employer] [facility] [employer] [facility] Comment: For patients with diabetes plus 1 major ASCVD risk factor, treating to a non-HDL-C goal of <100 mg/dL (LDL-C of <70 mg/dL) is considered a therapeutic option. Blood Blood / Unknown 09/06/2024 2 :21 PM EDT 09/06/2024 2:22 PM EDT Narrative [facility] - 09/07/2024 2:07 PM EDT FASTING:NO us Rodrigo Cruz NP LAB - BLOOD DRAW Final Result Performing Organization Address City/[facility]/ZIP Co de Phone Number [facility] [address] [address], [employer] [facility] [address] [place] [address] * HIV 1/2 AG & AB W/RFLX (4TH GEN) (03/08/2021 12:50 PM EDT) HIV AG/AB, 4TH GEN NON-REAC TIVE NON-REAC TIVE [employer] [facility] Comment: HIV-1 antigen and HIV-1/HIV-2 antibodies [...] purpose. For additional information please refer to http://education.[employer]/faq/QJE331 (This link is being provided for informational/ educational purposes only.) The performance of this assay has not been clinically validated in patients less than 2 years old. Blood Blood / Unknown 03/08/2021 1 2:50 PM EDT 03/08/2021 12:50 PM EDT Megha Herron PLANT TECHNICIAN LAB - BLOOD DRAW Final Result [employer] [facility] [address] [address], [employer] [address] [address] * PAP SMEAR, ABSTRACTED (03/02/2018 8:44 AM EDT) PAP SMEAR INTERPRETATION NORMAL NORMAL [facility] Specimen from uterine cervix (specimen) Impressions [facility] - 03/02/2018 8:44 AM EDT ThinPrep Pap Negative for squamous intraepithelial lesion and malignancy Provider [facility] LAB - PATHOLOGY AND CYTOLOGY AMB ULATORY Final Result [facility] [address] [facility] [place] [address], [place] [phone] from Last 3 Months or Most Recently Relevant to Health Maintenance Insurance [place] MEDICA[place] DENT[place] [employer]
[2025-02-07 09:28] VITALS: BMI 36.8
--- NOTE | 2025-02-07 10:14 | HO.ANESPROP2 ---
Documented by User: Page Courtney NP 02/07/25 10:14 HPI - Anesthesia Eval Consult details Narrative: 39 yr old female for Cystoscopy with Bulkamid PMFSH Active Problems Active Problems: All Active Problems (Updated 02/07/25 @ 09:31 by Elicia Asher RN) CRISTAL (stress urinary incontinence, female) (Acute) Microscopic hematuria (Acute) Mixed stress and urge urinary incontinence (Acute) Past Medical History Medical History (Updated 02/07/25 @ 09:31 by Elicia Asher RN) Depression Urge incontinence Surgical History Surgical History (Updated 02/11/25 @ 07:33 by Marla Blanco RN) History of breast lift H/O abdominoplasty Social History Social History Patient Tobacco Use Status: Never used Tobacco Use of substances other than those prescribed or required for medical reasons: Yes Substance Use Type Other:: edible to sleep occasionally Substance Use Frequency: Occasionally Are you DNR?: No Advance Directives: No Advance Directives Information Provided: Yes Meds Allergies Allergy/AdvReac Type Severity Reaction Status Date / Time No Known Allergies Allergy Verified 02/11/25 07:05 Home Medications ?Medication ?Instructions ?Recorded ?Confirmed ?Last Taken ?Type escitalopram oxalate 10 mg tablet 10 mg PO DAILY 11/21/24 02/11/25 Unknown History multivitamin 1 tab PO DAILY 02/11/25 02/11/25 Unknown History Exam Height,Weight and Vital Signs: Height 5 ft 7 in Weight 106.7 kg Documented by User: Edin Anderson MD 02/11/25 08:44 PMFSH Past Medical History Medical History (Updated 02/07/25 @ 09:31 by Elicia Asher RN) Depression Urge incontinence Patient : No Family History Family history of problems with anesthesia: No Surgical History Surgical History (Updated 02/11/25 @ 07:33 by Marla Blanco RN) History of breast lift H/O abdominoplasty History of Problems with Anesthesia: No Social History Social History Patient Tobacco Use Status: Never used Tobacco Use of substances other than those prescribed or required for medical reasons: Yes Substance Use Type Other:: edible to sleep occasionally Substance Use Frequency: Occasionally Are you DNR?: No Advance Directives: No Advance Directives Information Provided: Yes Meds Allergies Allergy/AdvReac Type Severity Reaction Status Date / Time No Known Allergies Allergy Verified 02/11/25 07:05 Home Medications ?Medication ?Instructions ?Recorded ?Confirmed ?Last Taken ?Type escitalopram oxalate 10 mg tablet 10 mg PO DAILY 11/21/24 02/11/25 Unknown History multivitamin 1 tab PO DAILY 02/11/25 02/11/25 Unknown History Exam Airway Mallampati Class: I TM Dist: >3cm Neck ROM: Full Loose/Missing/Broken Teeth: No Heart: ok Lungs: ok Assessment and Plan Assessment Anesthesia Assessment: Anesthesia Plan Discussed and Chart Reviewed Final Anesthetic Review Family History of Problems with Anesthesia: No History of Problems with Anesthesia: No NPO: Yes ASA Class: II Final Preanesthetic Review: No Changes in Pt Med Stat, Meds/Allgs Chart Reviewed, Consent Obtained/Reviewed and Anes Risks/Benef Reviewed Patient Risk: Intermediate Procedure Risk: Low Anesthetic Plan Anesthetic Plan: GA and Agree w/ Assess. and Plan Disposition: Standard PACU
[2025-02-11 07:05] VITALS: BMI 37.2
[2025-02-11 07:21] VITALS: BP 129/80; PULSE 65; RESP 15; TEMP 36.8; O2SAT 98
[2025-02-11] MEDS: Lactated Ringers 1,000 ML 100 ML IVCONT (07:33)
--- NOTE | 2025-02-11 08:16 | MHC.SHP ---
Pre-Procedural Eval Section A - 24 Hr Update-Section A only Date of Service: 02/11/25 The patient is an INPATIENT: No The patient has been examined within 24 hours of the surgical procedure. The History & Physical has been completed within 30 days and I have reviewed it.: Yes Section B - Complete if H&P > 30 days Chief Complaint: Stress incontinence (female) (male) Allergies: Allergies Allergy/AdvReac Type Severity Reaction Status Date / Time No Known Allergies Allergy Verified 02/11/25 07:05 Plan Diagnosis/Plan: Unchanged I have reviewed the history and physical and performed a pertinent physical examination on my patient. No changes have occurred unless specified. Cystoscopy. Bulkamid. I have discussed the risks of bulking injection to the proximal urethra to include but not limited to urine retention requiring a mccollum catheter, need to repeat the procedure, hematuria, and urgency. Time Spent With Patient Time: Total time managing care of this patient today ____ minutes.
--- NOTE | 2025-02-11 08:16 | W.PM.OPN ---
Operative Note Operative Note Date of Service: 02/11/25 Narrative: Preop diagnosis: Intrinsic sphincter deficiency Postop diagnosis: Intrinsic sphincter deficiency Procedure: Cystoscopy urethral bulking with bulkamid system, proximal urethra Surgeon: Dr. Stefan Reed Details of procedure: The patient was brought into the operating room placed on the OR table in supine position IV sedation was administered. Antibiotics confirmed. The patient was placed in lithotomy position prepped and draped in the usual sterile fashion. Safety time-out was done. A 14 Icelandic straight catheter was used to send urine for culture. 2% lidocaine jelly was inserted transurethrally 10 mL. The 22 fr with 0 degree lens, 11 cm cystoscope with the light cord in the 6 o'clock position, the bladder was filled with sterile water to 150 mL the bladder was visualized. With the sheath at the 5 o'clock position the needle was inserted to the 1 cm adriana and 0.5 mL of gel was injected there was good bulking noted. This was repeated on the 7 o'clock position. The 2nd needle was inserted into the sheath and an injection was done at the 2 o'clock position and again at the 11 o'clock position. There was bulking of the mucosa noted with good coaptation. The patient tolerated the procedure and was taken to recovery in stable condition. Complication: none EBL: minimal (<5 mL) Drains: none
[2025-02-11 09:25] VITALS: BP 140/94; PULSE 82; RESP 17; TEMP 36.7; O2SAT 96
[2025-02-11 09:30] VITALS: BP 142/95; PULSE 74; RESP 16; O2SAT 100
[2025-02-11 09:35] VITALS: BP 136/91; PULSE 64; RESP 16; O2SAT 98
[2025-02-11 09:40] VITALS: BP 132/83; PULSE 57; RESP 16; O2SAT 100
[2025-02-11 09:55] VITALS: BP 133/93; PULSE 57; RESP 16; TEMP 36.1; O2SAT 100
== END 2025-02-11 10:58 | disposition home or self-care (01) ==
PROVIDERS: Visit Provider Urology
PROC: (CPT 51715; principal; 2025-02-11 08:40)
DX: N39.46 Mixed incontinence (principal); N36.42 Intrinsic sphincter deficiency (ISD); R31.29 Other microscopic hematuria; Z79.899 Other long term (current) drug therapy; Z98.890 Other specified postprocedural states
CPT/HCPCS: 51715; 81025; 87086; J0690; J2003; J2405; J2704; J3010; L8606

== ENCOUNTER → 2025-02-11 06:56 | Outpatient (BNV) | payer OTHER, SELFPAY | PROVIDERS: Visit Provider Urology | DX: N36.42 Intrinsic sphincter deficiency (ISD) (principal) | CPT/HCPCS: 51715 ==

== ENCOUNTER → 2025-02-14 12:55 | Outpatient (BNVA) | payer OTHER, SELFPAY | PROVIDERS: Visit Provider Urology | DX: N39.46 Mixed incontinence (principal) | CPT/HCPCS: 51798 ==

== ENCOUNTER 2025-03-07 09:30 | Outpatient (REF) | payer OTHER, SELFPAY | END 2025-03-07 09:31 | disposition home or self-care (01) | LOC: HO.LNP 09:30 | PROVIDERS: Visit Provider Urology | DX: N39.46 Mixed incontinence (principal); R31.29 Other microscopic hematuria; N32.81 Overactive bladder; Z98.890 Other specified postprocedural states | CPT/HCPCS: 51798; 81003; 87086; 99212 ==

== ENCOUNTER 2025-03-07 09:30 | Outpatient (AMB) | payer OTHER, SELFPAY ==
--- NOTE | 2025-03-07 09:48 | A.OFFVIS_ITS ---
Intake Visit Reasons: CRISTAL, Bulkamid f/u Intake Note: Patient presents today for CRISTAL,Bulkamid follow up Urology Medications:None Blood Thinner: none PVR: 80ml County Records Management Officer Required: No Accompanied by: Self / Same As Patient Allergies No Known Allergies Allergy (Verified 03/07/25 09:48) Medication List - Last Reconciled 03/07/25 by Stefan Reed MD doxycycline hyclate 100 mg PO BID escitalopram oxalate 10 mg PO DAILY multivitamin 1 tab PO DAILY sulfamethoxazole-trimethoprim 800-160 mg (Bactrim DS) 1 tab PO BID 5 days HPI Comments Details: 03/07/25--the patient is status post urethral bulking procedure on 02/11/2025 mL 12/20/24--Mora is here for urodynamics. The patient has complaints of urinary incontinence, associated with urgency as well as leakage associated with coughing, lifting. She was started on Myrbetriq for overactive bladder symptoms with some improvement and urgency but states she still has leakage with activities such as lifting coughing laughing. Urodynamics today. Interpretation: During the filling phase there was sensory urgency and detrusor over activity. Pelvic exam leakage with Valsalva. EMG- Appropriate changes in the waveforms were noted throughout study. Findings consistent with mixed picture, stress urinary incontinence and detrusor overactivity. Will continue Myrbetriq for now for overactive bladder. I have discussed treatment options to include urethral bulking for stress incontinence symptoms. I have discussed the risks of bulking injection to the proximal urethra to include but not limited to urine retention requiring a mccollum catheter, need to repeat the procedure, hematuria, and urgency. 11/25/24--Gemma is a very pleasant 39-year-old female patient of Dr. Cruz. She presents to the office today as a new patient for mixed urinary incontinence. She reports symptoms have been present for many years however feels they are worsening. She reports having previously followed up with a urologist in the past at which time recommendations were made for potential surgical procedure however she did not feel her symptoms were bothersome enough to have a surgical procedure. She reports most recently she has been experiencing significant episodes of stress incontinence and finds this extremely bothersome. She discusses having followed up with her PCP in discussing this issue at which time she was started on 25 mg of Myrbetriq. She reports and follow-up she noted no improvement at which time her PCP increased her Myrbetriq to 50 mg daily. She reports noting no improvement with increase in her Myrbetriq. She reports utilizing 3-4 Caroline pads per day along with adult diapers. She does have a previous history of 2 vaginal deliveries of larger size babies. She reports after her 2nd child is when she felt symptoms began. She currently denies any UTI like symptoms. She denies hematuria, dysuria, foul smelling urine, changes to urinary stream, flank pain, fever, and or chills. We did discussed at length potential causes of mixed urinary incontinence as well as further treatment options and risks and benefits of these treatment options. In office urinalysis results reviewed with the patient today. Microscopic hematuria noted. She denies any previous history of workplace chemical exposure and or smoking history. PVR 87 mL. Discussed obtaining retroperitoneal ultrasound for further assessment evaluation. All questions were answered. She otherwise offers no other issues or concerns at this time. [facility] Medical History Depression Urge incontinence Surgical History History of breast lift H/O abdominoplasty Social History Patient Tobacco Use Status: Never used Tobacco Office Procedures Post Void Residual Post Residual Void Post Void Residual (PVR): 80 [id number] Void Residual by ultrasound Results AMB Urinalysis, Automated UA Leukoctes 0 Randy/uL Last Edit by Ana Carlton on 03/07/25 16:57 UA Nitrite Negative Last Edit by Ana Carlton on 03/07/25 16:57 UA Urobilinogen 0.2 mg/dL Last Edit by Ana Carlton on 03/07/25 16:57 UA Protein 30 mg/dL Last Edit by Ana Carlton on 03/07/25 16:57 UA pH 7.5 Last Edit by Ana Carlton on 03/07/25 16:57 UA Blood 25 Calvin/uL Last Edit by Ana Carlton on 03/07/25 16:57 UA Specific [place] 1.010 Last Edit by Ana Carlton on 03/07/25 16:57 UA Ketone Negative Last Edit by Ana Carlton on 03/07/25 16:57 UA Bilirubin 0 mg/dL Last Edit by Ana Carlton on 03/07/25 16:57 UA Glucose 0 mg/dL Last Edit by Ana Carlton on 03/07/25 16:57 Assessment & Plan Assessment & Plan Orders: Orders AMB Urinalysis Automated Today N39.46 - Mixed incontinence Urine Culture Today N39.46 - Mixed incontinence, R31.29 - Other microscopic hematuria Medications: New sulfamethoxazole-trimethoprim 800-160 mg (Bactrim DS) 1 tab PO BID 5 days 10 tabs 0RF sulfamethoxazole-trimethoprim 800-160 mg (Bactrim DS) 1 tab PO BID 3 days 6 tabs 0RF Coding CPT Codes Post Residual Void - PVR CPT Code: 11545-[id number] Void Residual by ultrasound ([id number])
--- OUTSIDE RECORDS SUMMARY | 2025-03-07 10:42 | XMS_ITS | Clinical Summary ---
Author Organization [facility] Address [address] [place] [address] Care Team Providers Care Detective Lieutenant Name Role Phone Unavailable Primary Care Provider [...] 3 Each 9 Active mirabegron 50 mg [id number]: Mixed stress and urge urinary incontinence Take [...] for mild pain. 20 Tablet 5 Active fluoride, sodium, (SF 5000 PLUS) 1.1 % creaIndications: Caries of enamel (incipient) [place] twice daily with toothpaste then expectorate. Do not rinse.. 51 g 5 5 Active Active Problems Problem Noted Date Diagnosed Date Vitamin D deficiency 06/19/2018 Constipation 06/19/2018 Encounters Date Type Department Care Team Description 02/04/2025 3:00 PM EDT Office Visit [facility] [address] [place] [phone] Georgie Wei DMD 02/03/2025 9:40 AM EDT Office Visit [facility] [address] [place] [phone] Lani Irby 01/02/2025 9:40 AM EDT Office Visit 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 Not on file Not on file Not on file Last Filed Vital Signs Vital Sign Reading Time Taken Comments Blood Pressure 137/88 02/04/2025 3:14 PM EDT Pulse 82 02/04/2025 3:14 PM EDT Temperature 36 C (96.8 F) [...] Care Team (Late st Contact Info) Description 08/04/2025 9:40 AM EDT Office Visit [facility] [address] [place] [phone] Lani Irby [address] [place] [address] Health Maintenance Due Date Last Done Comments Anxiety Screening 1985 Dental FMX/Pano 1985 HPV Screening (self-collect) 1985 HPV Screening 1985 Pap + HPV 1985 Relationship Safety Screening/Counseling 2000 Imm-Hepatitis B (1 of 3 - 19 + 3-dose series) 2004 Imm-HPV (1 - 3-dose SCDM series) 2012 Annual Wellness (Adult): Indicated (All Coverage) 06/19/2019 06/19/2018 Cervical Cancer Screening 03/02/2021 Pap Smear 03/02/2021 03/02/2018 [id number] ( season) 2025 Imm-Influenza (#1) 2025 02/28/2018 Diabetes Screening 09/06/2025 09/06/2024, 0 09/06/2024, 11/27/2019, Additional history exists Hypertension Screening (#1) 02/04/2026 Tobacco Screening 02/04/2026 02/04/2025 Dental BW 02/05/2026 02/03/2025, 07/01/2024, 05/30/2023, Additional history exists Dental Examination 02/05/2026 02/03/2025, 0 12/18/2023, 05/30/2023, Additional history exists Dental Perio Charting 02/05/2026 02/03/2025 , 12/18/2023, 05/30/2022 Dental Prophy 02/05/2026 02/03/2025, 11/20, 05/30/2023, Additional history exists Lipid Screening 09/07/2027 09/06/2024, 06/28/2018 Imm-DTaP/Tdap/Td (2 - Td or Tdap) 09/08/2031 022 HIV Screening Completed 03/08/2021, 01/16/2019 Hepatitis C Screening Completed 09/06/2024 Alcohol and Drug Screen Completed 11/04/2024, 06/19 Depression Annual Screen Completed 11/04/2024, 05/23 Cervical Ablation/Cold-Knife Conization Discontinued Cervical Cryotherapy Discontinued Colposcopy Discontinued Excision/Leep Discontinued HPV Genotyping Discontinued Vaginal Pap Discontinued Vulvoscopy Discontinued Procedures Procedure Name Priority Date/Time Associated Diagnosis Comments CASE PRESENTATION SUBS DTL & EXTENSIVE TX PLN Routine 02/04/2025 3:00 PM EDT Defective dental jew 3 MO RESIN-BASED COMPOSITE - TWO SURFACES POSTERIOR Routine 02/04/2025 3:00 PM EDT Defective dental jew PERIODIC ORAL EVALUATION ESTABLISHED PATIENT Routine 02/03/2025 9:40 AM EDT Defective dental jew Caries of enamel (incipient) DENTAL CASE MANAGEMENT - MOTIVATIONAL INTV Routine 02/03/2025 9:40 AM EDT Defective dental jew Caries of enamel (incipient) PROPHYLAXIS - ADULT Routine 02/03/2025 9 :40 AM EDT Defective dental jew Caries of enamel (incipient) COMP PERIODONTAL EVALUATION - NEW/EST PATIENT Routine 02/03/2025 9:40 AM EDT Defective dental jew Caries of enamel (incipient) BITEWINGS - FOUR RADIOGRAPHIC IMAGES Routine 02/03/2025 9:40 AM EDT Caries of enamel (incipient) Defective dental jew CARIES RISK ASSESSMENT & DOC FINDING HIGH RISK Routine 02/03/2025 9:40 AM EDT Defective dental jew Caries of enamel (incipient) NUTRITIONAL COUNSELING CONTROL OF DENTAL DISEASE Routine 02/03/2025 9:40 AM EDT Defective dental jew Caries of enamel (incipient) ORAL HYGIENE INSTRUCTIONS Routine 02/03/2025 9:40 AM EDT Defective dental jew Caries of enamel (incipient) ORAL CANCER SCREENING Routine 02/03/2025 9:40 AM EDT Defective dental jew Caries of enamel (incipient) CASE PRESENTATION SUBS DTL & EXTENSIVE TX PLN Routine 02/03/2025 9:40 AM EDT Defective dental jew Caries of enamel (incipient) CASE PRESENTATION SUBS DTL & EXTENSIVE TX PLN Routine 01/02/2025 9:40 AM EDT Defective dental jew 32 EXTRACTION ERU TOOTH RQR REMV BONE &/SECTN TOOTH Routine 01/02/2025 9:40 AM EDT Defective dental jew Dental caries on smooth surface penetrating into pulp HEPATITIS C AB W/RFLX HCV RNA, QT, RT PCR Routine 09/06/2024 2:21 PM EDT Need for hepatitis C screening test HEMOGLOBIN GLYCOSYLATED A1C Routine 09/06/2024 2:21 PM EDT Obesity (BMI 30-39.9) LIPID PANEL Routine 09/06/2024 2:21 PM EDT Obesity (BMI 30-39.9) HIV 1/2 AG & AB W/RFLX (4TH GEN) Routine 03/08/2021 12:50 PM EDT Routine screening for STI (sexually transmitted infection) PAP SMEAR Routine 03/02/2018 8:44 AM EDT from Last 3 Months or Most Recently Relevant to Health Maintenance Results * HEPATITIS C AB W/RFLX HCV RNA, QT, RT PCR (09/06/2024 2:21 PM EDT) HEPATITIS C ANTIBODY NON-REACT MYRIAM NON-REACT MYRIAM [facility] Comment: HCV antibody was non-reactive. There is no laboratory evidence of HCV infection. In most cases, no further action is required. However, if recent HCV exposure is suspected, a test for HCV RNA (test code 52031) is suggested. For additional information please refer to http://education.[employer]/faq/HNJ89g3 (This link is being provided for informational/ educational purposes only.) Blood Blood / Unknown 09/06/2024 2 :21 PM EDT 09/06/2024 2:22 PM EDT Narrative [facility] - 09/07/2024 2:07 PM EDT FASTING:NO us Rodrigo Ganestela GASATERIA ATTENDANT LAB - BLOOD DRAW Edited Result - Final Performing Organization Address [facility] de Phone Number [facility] [address] [address], [facility] [address] [address] * (ABNORMAL) HEMOGLOBIN GLYCOSYLATED A1C (09/06/2024 2:21 PM EDT) Pathologist [facility] HEMOGLOBIN A1C 5.7(H) <5.7 % [facility] Comment: For someone without known diabetes, [...] PM EDT 09/06/2024 2:22 PM EDT Narrative [facility] - 09/07/2024 2:07 PM EDT FASTING:NO us Rodrigo Cruz NP LAB - BLOOD DRAW Edited Result - Final Performing Organization Address [facility] de Phone Number [facility] [address] [address], [facility] [address] [address] * (ABNORMAL) LIPID PANEL (09/06/2024 2:21 PM EDT) CHOLESTEROL, TOTAL 176 <200 mg/dL [facility] HDL CHOLESTEROL 44(L) > OR = 50 mg/dL [facility] TRIGLYCERIDES 179(H) <150 mg/dL [facility] LDL-CHOLESTEROL 102(H) 99 mg/dL (calc) [facility] Comment: Reference range: <100 Desirable range <100 mg/dL for primary prevention; <70 mg/dL for patients with CHD or diabetic patients with > or = 2 CHD risk factors. LDL-C is now calculated using the Jakob calculation, which is a validated novel method providing better accuracy than the Friedewald equation in the estimation of LDL-C. Todd ARMSTRONG et al. CORRIE. 2013;310(19): 1380-3577 (http://education.CompleteCar.com/faq/VIZ789) CHOL/HDLC RATIO 4.0 <5.0 (calc) [facility] NON-HDL CHOLESTEROL 132(H) <130 mg/dL (calc) [facility] Comment: For patients with diabetes plus 1 major ASCVD risk factor, treating to a non-HDL-C goal of <100 mg/dL (LDL-C of <70 mg/dL) is considered a therapeutic option. Blood Blood / Unknown 09/06/2024 2 :21 PM EDT 09/06/2024 2:22 PM EDT Narrative [facility] - 09/07/2024 2:07 PM EDT FASTING:NO Rodrigo Cruz NP LAB - BLOOD DRAW Final Result [facility] [address] [place] [id number], [facility] [address] [place] [id number] * HIV 1/2 AG & AB W/RFLX (4TH GEN) (03/08/2021 12:50 PM EDT) HIV AG/AB, 4TH GEN NON-REAC TIVE NON-REAC TIVE [employer] [facility] Comment: HIV-1 antigen and HIV-1/HIV-2 antibodies were [...] purpose. For additional information please refer to http://education.[employer]/faq/NCY350 (This link is being provided for informational/ educational purposes only.) The performance of this assay has not been clinically validated in patients less than 2 years old. Blood Blood / Unknown 03/08/2021 1 2:50 PM EDT 03/08/2021 12:50 PM EDT Megha Mayorexarnav [facility] LAB - BLOOD DRAW Final Result [facility] [address] [address], [facility] [address] [address] * PAP SMEAR, ABSTRACTED (03/02/2018 8:44 AM EDT) PAP SMEAR INTERPRETATION NORMAL NORMAL [facility] Specimen from uterine cervix (specimen) Impressions [facility] - 03/02/2018 8:44 AM EDT ThinPrep Pap Negative for squamous intraepithelial lesion and malignancy Provider [facility] - PATHOLOGY AND CYTOLOGY AMB ULATORY Final Result [facility] [address] [place] [address], from Last 3 Months or Most Recently Relevant to Health Maintenance Insurance [place] MEDICA[place] D[facility] [employer] [facility]
--- OUTSIDE RECORDS SUMMARY | 2025-03-07 10:42 | XMS_ITS | Clinical Summary ---
Author Organization [facility] ity Address [address] [place] [address] Care Team Providers Care Forensic Analyst Name Role Phone Unavailable Primary Care Provider [...] of 3 - 19+ 3-dose series) 2004 HPV Vaccines (1 - 3-dose SCD M series) 2012 Depression Screening 05/22/2024 COVID-19 Vaccine (1 - 2023-2 5 season) 2025 Influenza Vaccine (#1) 2025 RSV Immunization Adult Patie nts (1 - 1-dose 75+ series) 2060 HIB Vaccines Aged Out No longer eligi [...]
== END 2025-03-07 11:01 | disposition home or self-care (01) ==
LOC: HO.HUSH 09:31
PROVIDERS: Visit Provider Urology
DX: N39.46 Mixed incontinence (principal)

== ENCOUNTER 2025-04-07 16:40 | Outpatient (AMB) | payer OTHER, SELFPAY ==
--- NOTE | 2025-04-07 16:40 | A.OFFVIS_ITS ---
Intake Visit Reasons: medication follow up Intake Note: Patient presents today via telehealth for medication follow up Urology Medications:None Blood Thinner:None Antibiotic Allergy:None Party Plan Sales Unit Advisor Required: No Accompanied by: Self / Same As Patient Allergies No Known Allergies Allergy (Verified 04/07/25 16:41) HPI Comments Details: 04/07/25--Mora is being treated for mixed urinary incontinence. She is currently on combination anticholinergic therapy of Myrbetriq 50 mg and VESIcare 10 mg daily. The patient states she still has significant urge symptoms associated with urinary leakage and urinary frequency. The patient has failed p.o. anticholinergic therapy. I have discussed proceeding with bladder Botox injection 100 units. 03/07/25--The patient is status post urethral bulking procedure on 02/11/2025. The patient has complaints of urinary incontinence, associated with urgency as well as leakage associated with coughing, lifting. She states that she has noted minimal improvement but still has significant leakage associated with urgency. History of Present Illness The patient is a 39-year-old female presenting with voiding dysfunction and urinary incontinence. She reports leakage of urine despite being status post urethral bulking, with mildimprovement noting a slowed urine flow when sitting to urinate. The patient's obstetric history includes 6 pregnancies, with 4 full- term deliveries and 2 miscarriages. The full-term babies weighed approximately seven and eight pounds respectively. Results: UDS -12/20/24- c/w Mixed Urinary incont. ++ Detrusor overactivity was present as well as leakage associated with stress. Plan 1. Voiding Dysfunction - Plan to perform Botox injections to manage OAB symptoms. - Start with 100 units of Botox 2. Send urine sample for culture to rule out infection. - Initiate antibiotic therapy as a precautionary measure while awaiting urine culture results. 12/20/24--Mora is here for urodynamics. The patient has complaints of urinary incontinence, associated with urgency as well as leakage associated with coughing, lifting. She was started on Myrbetriq for overactive bladder symptoms with some improvement and urgency but states she still has leakage with activities such as lifting coughing laughing. Urodynamics today. Interpretation: During the filling phase there was sensory urgency and detrusor over activity. Pelvic exam leakage with Valsalva. EMG- Appropriate changes in the waveforms were noted throughout study. Findings consistent with mixed picture, stress urinary incontinence and detrusor overactivity. Will continue Myrbetriq for now for overactive bladder. I have discussed treatment options to include urethral bulking for stress incontinence symptoms. I have discussed the risks of bulking injection to the proximal urethra to include but not limited to urine retention requiring a mccollum catheter, need to repeat the procedure, hematuria, and urgency. 11/25/24--Gemma is a very pleasant 39-year-old female patient of Dr. Cruz. She presents to the office today as a new patient for mixed urinary incontinence. She reports symptoms have been present for many years however feels they are worsening. She reports having previously followed up with a urologist in the past at which time recommendations were made for potent ial surgical procedure however she did not feel her symptoms were bothersome enough to have a surgical procedure. She reports most recently she has been experiencing significant episodes of stress incontinence and finds this extremely bothersome. She discusses having followed up with her PCP in discussing this issue at which time she was started on 25 mg of Myrbetriq. She reports and follow-up she noted no improvement at which time her PCP increased her Myrbetriq to 50 mg daily. She reports noting no improvement with increase in her Myrbetriq. She reports utilizing 3-4 Caroline pads per day along with adult diapers. She does have a previous history of 2 vaginal deliveries of larger size babies. She reports after her 2nd child is when she felt symptoms began. She currently denies any UTI like symptoms. She denies hematuria, dysuria, foul smelling urine, changes to urinary stream, flank pain, fever, and or chills. We did discussed at length potential causes of mixed urinary incontinence as well as further treatment options and risks and benefits of these treatment options. In office urinalysis results reviewed with the patient today. Microscopic hematuria noted. She denies any previous history of workplace chemical exposure and or smoking history. PVR 87 mL. Discussed obtaining retroperitoneal ultrasound for further assessment evaluation. All questions were answered. She otherwise offers no other issues or concerns at this time. [facility] Medical History Depression Urge incontinence Surgical History History of breast lift H/O abdominoplasty Social History Patient Tobacco Use Status: Never used Tobacco Review of Systems Const All systems reviewed & are unremarkable except as noted in HPI and below Reports no additional complaints Eyes Reports no additional complaints ENT Reports no additional complaints Card Reports no additional complaints Resp Reports no additional complaints GI Reports no additional complaints Reports as per HPI Musc Reports no additional complaints Skin/Breast Reports system reviewed and no additional complaints, except as documented Neuro Reports no additional complaints Psych Reports no additional complaints Endo Reports no additional complaints Bandar/Lymph Reports no additional complaints Aller/Immun Reports no additional complaints Telehealth Telehealth Telehealth Platform: [employer] Location of provider rendering services: practice address Location of patient: address on file Patient Identification confirmed using: Name, : Yes Telehealth method: voice only Patient verbally consented to treatment: Yes Patient verbally consented to billing insurance company: Yes Patient informed of any privacy concerns related to visit: Yes Minutes spent on Phone/Video with Pt.: 14 Assessment & Plan Assessment & Plan (1) Mixed stress and urge urinary incontinence: Code(s): N39.46 - Mixed incontinence Category: Medical (2) Detrusor overactivity: Code(s): N32.81 - Overactive bladder Category: Medical (3) OAB (overactive bladder): Code(s): N32.81 - Overactive bladder Category: Medical Plan Plan Overactive bladder. Failed p.o. anticholinergic therapy. - Plan to perform Botox injections to manage OAB symptoms. - Start with 100 units of Botox, outpatient Medications: Refilled mirabegron ER (Myrbetriq) take in morning 50 mg PO DAILY 30 tabs 1RF 30 days solifenacin (Vesicare) take at bedtime 10 mg PO DAILY 30 tabs 1RF 30 days Patient Instructions: The patient had an opportunity to ask questions regarding treatment plan. The patient expressed understanding and agreement with the above treatment plan. The patient is aware they should contact our office by phone for worsening of their current condition or the appearance of new symptoms. Compliance is encouraged with any medications and followup testing that is ordered. It is a privilege to be allowed the opportunity to participate in the urologic care of your patient. If you have any questions or concerns regarding treatment for the above conditions please do not hesitate to contact me. The office telephone contact is [phone]. This note is constructed in part using voice recognition software. While every effort has been made to ensure accuracy gas processing plant operator errors may have been included. Yours sincerely, Stefan Reed MD Coding Level of Care Code Complex visit Add On G2211 Diagnoses Mixed stress and urge urinary incontinence N39.46 Detrusor overactivity N32.81 OAB (overactive bladder) N32.81
== END 2025-04-07 16:44 | disposition home or self-care (01) ==
LOC: HO.HUSH 16:40
PROVIDERS: Visit Provider Urology
DX: N39.46 Mixed incontinence (principal); N32.81 Overactive bladder
CPT/HCPCS: 98013